=== PATIENT | male | born 1950 | race Caucasian/White ===

== ENCOUNTER → 2016-09-01 | Outpatient (CLI) | payer MEDICARE ==
[~2016-09-01] MED LIST: ASPI81 PO; FISH1000 PO; HYDR-3366 PO; LEFL20 PO; LEFL20TA7 PO; MEDR4TAB PO; MELO15TA2 PO; MULTTAB67 PO; NAPR220T95 PO; PRESCAP5 PO; TAB-TAB PO; TOPR100T15 PO; TRIA.1%T TOP; VITA100064 PO
== END ==
LOC: CPRE 12:55
PROVIDERS: ATTEND Neurological Surgery
DX: M48.06 Spinal stenosis, lumbar region (principal); M51.36 Other intervertebral disc degeneration, lumbar region; M12.88 Other specific arthropathies, not elsewhere classified, other specified site

== ENCOUNTER 2016-09-06 05:36 | Day surgery (SDC) | payer MEDICARE ==
--- NOTE | 2016-09-03 13:55 | MH ---
cc: LIZZIE CHE M.D., ROHIT K. M.D. NIPPER MD,FRANCO ZAFAR M.D., MD DATE OF ADMISSION: 09/06/2016 ADMITTING DIAGNOSIS: Lumbar spinal stenosis. HISTORY OF PRESENT ILLNESS This is a 66-year-old male who presented to our office for an evaluation of right groin pain. He states that in December of 2015 he was on a trip [id number] and doing a lot of physical work weed whacking and twisting a lot. He states that two days after he returned, he had difficulty walking secondary to the right groin pain which progressively has gotten worse. He went to the emergency room for pain control but everything they gave him was not helping his pain. He had an x-ray and ultrasound of his right groin and that was okay. He was discharged with tramadol and muscle relaxants, which did not help. He followed up with his primary care physician was placed on prednisone, muscle relaxants and [place]. He states the pain resolved in January. On March 24, the pain returned but not to the same intensity. His primary care doctor placed him on prednisone again. He states the pain has changed and it is not in the groin so much but is present in the mid right thigh to the mid right [place] and around the right knee. He states on the bottom of his feet, they feel like he is walking on sand. He feels stuff crawling up his right calf. He denies any left lower extremity symptoms. He denies much low back pain. Flexing his right hip exacerbates his right groin pain. The patient has tried physical therapy which helped some with his right groin pain. He wants to return to being a very active lifestyle but is very concerned that the severe pain that he initially had is going to return when he increases his activity. The patient states that his pain is restricting his activity status. He is requesting that we proceed with surgical intervention. PAST MEDICAL HISTORY: 1. The patient states that he has a had a history of tuberculosis in the past. 2. He also sees a ambulance dispatcher for inflammatory arthritis. 3. He has a history of a torn rotator cuff on the left side in 2005 that he had surgery for. 4. Right thumb fracture in 1961. 5. Tonsillectomy in 1954. CURRENT MEDICATIONS: 1. Arava daily. 2. Aleve daily and this was placed on hold prior to surgical intervention. ALLERGIES: HE HAS NO KNOWN DRUG ALLERGIES. REVIEW OF SYSTEMS CONSTITUTIONAL: He denies any fever or chills. EARS, NOSE AND THROAT: No pharyngitis, exudates or bloody drainage from his nose. CARDIOVASCULAR: He denies any chest pain or palpitations. RESPIRATORY: No cough or shortness of breath. GENITOURINARY: No dysuria or hematuria. MUSCULOSKELETAL: Positive for leg pain. No back pain. SKIN: No rashes or pruritus. NEUROLOGIC: No difficulty with speech or memory. GASTROINTESTINAL: No nausea or vomiting or abdominal pain. PSYCHIATRIC: No anxiety or depression symptoms. ENDOCRINE: No polyuria or polydipsia. HEMATOLOGIC: No bruising or bleeding tendencies. FAMILY HISTORY: His mother is at 96 years of age old of natural causes. His father is at 81 years old and had a stroke. He has a brother who is alive at 57 years old and in good health. SOCIAL HISTORY: He is retired. He is . He has two children. He does not smoke and he had previously but quit in 1992 and at that time he was smoking a pack a day for ten years. PHYSICAL EXAMINATION HEAD: Normocephalic, atraumatic. NECK: Supple. No carotid bruits heard on auscultation. LUNGS: Clear to auscultation bilaterally. HEART: Regular rate and rhythm. Normal sinus S1-S2. ABDOMEN: Soft, nontender. Positive bowel sounds. SKIN: Reveals no cyanosis or erythema. MUSCULOSKELETAL: He has 4/5 right iliopsoas strength, otherwise his strength is 5/5 in the lower extremities. NEUROLOGIC: He is awake, alert and oriented. Cranial nerves II through XII appear grossly intact. His speech is fluent. Comprehension is good. Reflexes are very diminished in the lower extremities. DATA REVIEW: An MRI of the lumbar spine from February 14, 2016 was reviewed which reveals moderate to severe L3-L4 spinal stenosis from a combination of facet and ligamentum flavum hypertrophy along with disk protrusion and moderate stenosis at the L4-5 level and mild at the L2-3 level. He has multilevel degenerative disk disease with facet arthropathy. IMPRESSION: 66-year-old male with persistent right groin and thigh pain down to his ankle with numbness in the plantar aspect of his foot. He also suffers from chronic bilateral knee pain. He has severe L3-4 and moderate L4-5 spinal stenosis along with facet and ligamentum flavum hypertrophy and disc protrusions and multilevel degenerative disc disease. PLAN: We have discussed the treatment options with the patient and he is requesting that we proceed with surgical intervention. We have recommended an L3-L5 lumbar decompression with microsurgical technique. The procedure as well as the risks, benefit, alternatives and recovery time were explained in great deal with the patient. We have discussed the risks along with the surgery to include but not be limited to bleeding, infection, muscle weakness, voice hoarseness, difficulty swallowing, heart attack, stroke, blood clots, scar tissue formation among others. The patient states that he understands the procedure as well as the risks involved and he was therefore scheduled accordingly. Dictated by Shane Valenzuela PA-C MD DREA Navarrete/CELE /1:13 PM /1:36 PM AUDREY
[~2016-09-06] VITALS: Ht 180.3 cm; Wt 90.1 kg
[~2016-09-06 05:36] MED LIST changes: -ASPI81 PO; -FISH1000 PO; -LEFL20TA7 PO; -MEDR4TAB PO; -MELO15TA2 PO; -NAPR220T95 PO; -TAB-TAB PO; -TOPR100T15 PO; -TRIA.1%T TOP
[2016-09-06 06:13] VITALS: BP 168/94; PULSE 76; RESP 18; TEMP 99; O2SAT 96
[2016-09-06] MEDS ORDERED: METOPROLOL TARTRATE 25 MG TAB PO PRN (06:15)
[2016-09-06] MEDS ORDERED: LACTATED RINGER'S 1000 ML IV SCH (06:15)
[2016-09-06] MEDS ORDERED: INSULIN HUMAN REGULAR 1,000 UNITS/10 ML VIAL SQ PRN (06:15)
[2016-09-06] MEDS ORDERED: SODIUM CHLOR 0.9% 1000 ML INJ 1,000 ML IV SCH (06:15)
[2016-09-06] MEDS ORDERED: SODIUM CHLORID 0.9% 500 ML IV SCH (06:15)
[2016-09-06] MEDS ORDERED: VANCOMYCIN HCL 1000 MG ON-CALL/NS 250 ML IV SCH ×2 (06:15)
[2016-09-06] MEDS ORDERED: VANCOMYCIN HCL 1000 MG VIAL ONE (07:08)
[2016-09-06] MEDS ORDERED: THROMBIN (TOPICAL) 5,000 UNIT VIAL ONE (07:08)
[2016-09-06] MEDS ORDERED: methylPREDNISolone ACETATE 40 MG/ML VIAL ONE ×2 (07:09→10:39)
[2016-09-06] MEDS ORDERED: GELFOAM SIZE 100 ONE (07:09)
[2016-09-06] MEDS ORDERED: BUPIVACAINE/EPINEPHRINE 0.25% PF 30 ML VIAL ONE (07:09)
[2016-09-06] MEDS ORDERED: DEXAMETHASONE SOD PHOS 4 MG/ML VIAL ONE (07:50)
[2016-09-06] MEDS ORDERED: ACETAMINOPHEN 1000 MG/100 ML VIAL IV ONE (07:50)
[2016-09-06] MEDS ORDERED: MIDAZOLAM HCL 2 MG/2 ML VIAL ONE (07:50)
[2016-09-06] MEDS ORDERED: FAMOTIDINE 20 MG/2 ML VIAL ONE (07:50)
[2016-09-06] MEDS ORDERED: HYDR-3366 PO (11:28)
[2016-09-06] MEDS ORDERED: ACETAMINOPHEN/HYDROcodone 325 MG/10 MG TAB PO PRN (11:30)
[2016-09-06] MEDS ORDERED: MORPHINE SULFATE 4 MG/ML INJ IV PUSH PRN (11:30)
--- NOTE | 2016-09-06 11:33 | PD.OP ---
Bo Sandhu M.D. Operative Report Date of Surgery: Sep 06, 2016 Preoperative Diagnosis: Lumbar L3-4 and L4-5 spinal stenosis from combination of disc protrusion and facet hypertrophy; low back pain with neurogenic claudication and radiculopathy Postoperative Diagnosis: Same Procedure: Lumbar L3, L4 and L5 decompressive laminectomies medial facetectomy, foraminotomies and microdiscectomy; microsurgical technique Anesthesia: Gen. endotracheal by Brigid Bell Surgeon: Clifton Graf M.D. Theatrical Dresser(s): Hanh Mclaughlin Operation and Findings: Following administration of general endotracheal anesthesia, patient received vancomycin 1 g intravenously. Sequential compression devices were placed for DVT prophylaxis. He was then turned in prone position on Yfn frame and the Derick table and all pressure points adequately padded. The lumbar region was then shaved and prepped with a Betadine and ChloraPrep. Sterile draping undertaken with Ioban. Midline incision overlying the L3-5 level was then made after infiltrating the skin with 0.5% Marcaine with epinephrine solution. The skin incision was made extending down through the fascia and then using the subperiosteal plane on the right side the muscular attachments to the spinous process and lamina were detached. Intraoperative fluoroscopy was used for level confirmation and further dissection undertaken using microtechnique with microscope magnification. The inferior portion of the right L3, right L4 hemilaminotomy and superior portion of the right L5 lamina were then drilled out and the underlying ligamentum flavum also removed. There was facet arthropathy noted and the medial portion of facets at the right L3-4 and L4-5 levels was also resected and the lateral recess along with a foramen decompressed. Epidural venous stasis which he with the bipolar cautery along with Gelfoam and thrombin and bone wax used at the laminotomy edges for hemostasis. The thecal sac was then gently retracted with a nerve root retractor and an extruded disc fragment was identified at the L3-4 level. Fragments were removed with pituitary forceps and the nerve root impingement along with thecal sac compression decompressed. The area was then copiously irrigated with vancomycin solution. The retractors removed and the muscle fascia proximal using 2-0 Vicryl interrupted stitches. 3-0 Vicryl subcuticular stitches were also placed in an interrupted fashion and planned skin closure was with Mastisol and Steri-Strips. A sterile dressing was then applied and the patient then turned in the supine position and extubated and taken to recovery room in stable condition. There were no intraoperative complications and all sponge and needle count was correct at the end of the procedure. Estimated blood loss about 50 ml. Clifton Graf MD Sep 06, 2016 11:33
[2016-09-06] MEDS ORDERED: fentaNYL CITRATE 250 MCG/5 ML AMP ONE (11:42)
[2016-09-06] MEDS ORDERED: NEOSTIGMINE 3 MG/3 ML SYR IV ONE ×2 (12:00)
[2016-09-06] MEDS ORDERED: ONDANSETRON HCL 4 MG/2 ML VIAL IV PUSH ONE (12:00)
[2016-09-06] MEDS ORDERED: ePHEDrine/NS 25 MG/5 ML SYR IV ONE (12:00)
[2016-09-06] MEDS ORDERED: DO NOT ADM ANY ANTICOAGULANT DRUGS XX PRN (12:00)
[2016-09-06] MEDS ORDERED: PROPOFOL 200 MG/20 ML AMP IV ONE (12:00)
[2016-09-06] MEDS ORDERED: ERYTHROMYCIN 0.5% OPTH OINT 1 GM TUBO ONE (12:26)
[2016-09-06] MEDS ORDERED: ERYTHROMYCIN 0.5% OPTH OINT 3.5 GM TUBO ONE ×2 (12:45→14:00)
[2016-09-06] MEDS ORDERED: ERYTHROMYCIN 0.5% OPTH OINT 3.5 GM TUBO LEFT EYE ONE (12:45)
[2016-09-06] MEDS ORDERED: NON-FORMULARY DRUG LEFT EYE ONE (12:45)
[2016-09-06 13:28] VITALS: BP 145/82; PULSE 85; RESP 18; TEMP 98.1; O2SAT 97
[2016-09-06] MEDS ORDERED: TETRACAINE 0.5% OPTH SOLN 2 ML BTL ONE (14:00)
--- NOTE | 2016-09-06 15:01 | RADRPT ---
EXAM DATE/TIME: 09/06/2016 09:05 [facility] COMPARISON: No previous studies available for comparison. INDICATIONS : L3-4, L4-5 Laminectomy. MEDICAL HISTORY : Gastroesophageal reflux disease. Arrhythmia. SURGICAL HISTORY : None. ENCOUNTER: Initial ACUITY: 1 day PAIN SCORE: Non-responsive. LOCATION: Lumbar spine. FINDINGS: Metallic probe is directed at L3-4 and L4-5. CONCLUSION: Metallic probe directed at L3-4 and L4-5. Mauri Moura MD FACR on September 06, 2016 at 13:04 Board Certified Radiologist. This report was verified electronically.
[2016-09-07] MEDS ORDERED: CHOLECALCIFEROL (VIT D3) 5000 UNIT CAP PO SCH (09:00)
[2016-09-07] MEDS ORDERED: LEFLUNOMIDE 20 MG TAB PO SCH (09:00)
[2016-09-07] MEDS ORDERED: MULTIVITAMINS/MINERALS THERAPEUTIC TAB PO SCH (09:00)
[2016-09-07] MEDS ORDERED: MULTIVITAMIN TAB PO SCH (09:00)
== END 2016-09-06 14:25 | disposition home or self-care (01) ==
LOC: HSDC 05:36
PROVIDERS: ATTEND Neurological Surgery
DX: M48.06 Spinal stenosis, lumbar region (principal); M51.36 Other intervertebral disc degeneration, lumbar region; M12.88 Other specific arthropathies, not elsewhere classified, other specified site
CPT/HCPCS: 00630; 63047; 63048; 72020; 76000; 86850; 86900; 86901; J0131; J1030; J1100; J2250; J2405; J2710; J3010; J3370; J7050; J7120

== ENCOUNTER → 2017-08-15 | Outpatient (CLI) | payer MEDICARE ==
[2017-08-15 09:47] LABS: HEMATOCRIT 43.7 % (39.0-51.0); HEMOGLOBIN 15.6 GM/DL (13.0-17.0); MEAN CORPUSCULAR HEMOGLOBIN 31.8 PG (27.0-34.0); MEAN CORPUSCULAR HGB CONC 35.7 % (32.0-36.0); MEAN PLATELET VOLUME 8.3 FL (7.0-11.0); PLATELET COUNT 163 TH/MM3 (150-450); RED CELL DISTRIBUTION WIDTH 13.5 % (11.6-17.2); REVIEW FLAG FINAL; WHITE BLOOD COUNT 5.5 TH/MM3 (4.0-11.0)
[2017-08-15 10:06] LABS: APTT (PATIENT) 23.7 SEC (24.3-30.1); INTERNATIONAL NORMALIZED RATIO 0.9 RATIO; PROTHROMBIN TIME - PATIENT 9.6 SEC (9.8-11.6)
[2017-08-15 10:13] LABS: ALT (GPT) 39 U/L (12-78); ANION GAP 7 MEQ/L (5-15); AST (GOT) 28 U/L (15-37); BICARBONATE 27.4 MEQ/L (21.0-32.0); BLOOD UREA NITROGEN 16 MG/DL (7-18); CHLORIDE 103 MEQ/L (98-107); GLOMERULAR FILTRATION RATE 84 ML/MIN (>89); GLUCOSE,FASTING 105 MG/DL (74-99); POTASSIUM 4.3 MEQ/L (3.5-5.1); SODIUM (NA) 137 MEQ/L (136-145)
[2017-08-15 10:16] LABS: ALKALINE PHOSPHATASE 66 U/L (45-117); BILIRUBIN, URINE NEG (NEG); BLOOD, URINE NEG (NEG); GLUCOSE,URINE NEG (NEG); KETONE, URINE NEG (NEG); MUCUS URINE FEW /lpf (OCC); NITRITE,URINE NEG (NEG); PH, URINE 5.5 (5.0-8.5); TOTAL BILIRUBIN ADULT 1.2 MG/DL (0.2-1.0); TOTAL PROTEIN 7.3 GM/DL (6.4-8.2); URINE COLOR YELLOW (YELLW/STRAW); URINE LEUKOCYTE ESTERASE NEG (NEG)
[2017-08-15 10:17] LABS: COMMENT (UR) CULT NOT INDICATED; CULTURE IF INDICATED CULT NOT INDICATED
== END ==
LOC: CPRE 08:10
DX: Z01.812 Encounter for preprocedural laboratory examination (principal); Z01.810 Encounter for preprocedural cardiovascular examination; R94.31 Abnormal electrocardiogram [ECG] [EKG]
CPT/HCPCS: 36415; 80053; 81001; 85027; 85610; 85730; 93005

== ENCOUNTER 2017-08-22 05:32 | Inpatient (IN) | payer MEDICARE ==
--- NOTE | 2017-08-17 18:19 | MH ---
cc: Flako CAMACHO M.D. DATE OF ADMISSION 08/22/2017 ADMISSION DIAGNOSIS Osteoarthritic degeneration of left and right knees now being admitted for bilateral total knee arthroplasties. HISTORY OF THE PRESENT ILLNESS Admission history and physical is as follows, this pleasant 67-year-old male is being admitted today for bilateral total knee arthroplasty due to severe painful osteoarthritic degeneration of his knees. PAST MEDICAL HISTORY Other past history: 1. He has a history of respiratory tuberculosis when he was younger. 2. And arthritis. CURRENT MEDICATIONS Arava 20 mg a day. REVIEW OF SYSTEMS Noncontributory. FAMILY HISTORY Noncontributory. PAST SURGICAL HISTORY No known surgical history. SOCIAL HISTORY He does not smoke or drink. ALLERGIES NO KNOWN ALLERGIES. PHYSICAL EXAMINATION GENERAL: We find a 67-year-old male well-developed, well-nourished, alert and oriented times three complaining of pain in his knees. VITAL SIGNS: Blood pressure 138/78, pulse 69 and regular, respirations 16, temperature 98.5, pulse oximetry 97% on room air. HEENT: Eyes PERRL, EOMI. Ears, nose, mouth clear. NECK: Supple. LUNGS: Clear. HEART: Regular rate. ABDOMEN: Soft. Positive bowel sounds, nontender. EXTREMITIES: Reveal both knees to have crepitance on range of motion. He is neurovascularly intact to his toes. IMPRESSION At this time is severe, painful, arthritic degeneration of both knees. PLAN Admission for bilateral total knee arthroplasty today. The patient given prescription for postoperative pain and anticoagulation control in the office. MD CHARLES Orozco/MARIAH /5:15 PM /5:50 PM
[~2017-08-22] VITALS: Ht 180.3 cm; Wt 93.1 kg
[~2017-08-22 05:32] MED LIST changes: +ALEV220T14 PO; -HYDR-3366 PO; -LEFL20 PO; +OCUVTAB4 PO; -PRESCAP5 PO
[2017-08-22] MEDS ORDERED: METOPROLOL TARTRATE 25 MG TAB PO PRN (06:00)
[2017-08-22] MEDS ORDERED: VANCOMYCIN 1000 MG/NS 250 ML (for <70 kg) IV SCH ×2 (06:00)
[2017-08-22] MEDS ORDERED: CHLORHEXIDINE GLUCONATE 2 % 1 PACK (2 CLOTHS) TOPICAL PRN (06:00)
[2017-08-22] MEDS ORDERED: TRANEXAMIC ACID INJ 930 MG in SODIUM CHLORIDE 0.9% INJ 100 ML IV SCH ×4 (06:00)
[2017-08-22] MEDS ORDERED: LACTATED RINGER'S 1000 ML IV PRN (06:00)
[2017-08-22] MEDS ORDERED: CHLORHEXIDINE GLUCONATE 4% SOLN 120 ML BTL TOPICAL SCH (06:00)
[2017-08-22] MEDS ORDERED: ceFAZolin 2 GM PREMIX 50 ML IV SCH (06:00)
[2017-08-22] MEDS ORDERED: SODIUM CHLORID 0.9% 500 ML IV PRN (06:00)
[2017-08-22] MEDS ORDERED: POVIDONE IODINE 5% (ANTISEPSIS KIT) 4 APPLICATIONS EACH NARE PRN (06:00)
[2017-08-22] MEDS ORDERED: EXPAREL PERI-ARTICULAR INJECTION (TOTAL VOL. 120 ML) P-ARTICULR SCH ×2 (06:15)
[2017-08-22] MEDS ORDERED: ceFAZolin INJ 1,000 MG VIAL ONE ×3 (06:45→11:54)
[2017-08-22] MEDS ORDERED: BUPIVACAINE HCL PF 0.5% 30 ML VIAL ONE (07:01)
[2017-08-22] MEDS ORDERED: SODIUM CHLORIDE 0.9% 20 ML VIAL ONE (07:01)
[2017-08-22] MEDS ORDERED: DEXAMETHASONE SOD PHOS PF 10 MG/ML VIAL ONE (07:01)
[2017-08-22] MEDS ORDERED: BUPIVACAINE LIPOSOME PF 1.3% 20 ML VIAL ONE (07:18)
[2017-08-22] MEDS ORDERED: DEXAMETHASONE SOD PHOS 4 MG/ML VIAL ONE (07:58)
[2017-08-22] MEDS ORDERED: MORPHINE SULFATE 30 MG/30 ML PCA IV SCH (08:00)
[2017-08-22] MEDS ORDERED: CPMMACHINE (08:00)
[2017-08-22] MEDS ORDERED: ONDANSETRON HCL 4 MG/2 ML VIAL IVP PRN (08:00)
[2017-08-22] MEDS ORDERED: HYDROcodone/IBUPROFEN 7.5MG/200MG TAB PO PRN (08:00)
[2017-08-22] MEDS ORDERED: TRANEXAMIC ACID INJ 0 MG in SODIUM CHLORIDE 0.9% INJ 100 ML IV SCH (08:00)
[2017-08-22] MEDS ORDERED: WALKER WHEELS/F1 MIS (08:00)
[2017-08-22] MEDS ORDERED: TEMAZEPAM 15 MG CAP PO PRN (08:00)
[2017-08-22] MEDS ORDERED: diphenhydrAMINE HCL 50 MG/ML VIAL IV PUSH PRN (08:00)
[2017-08-22] MEDS ORDERED: NALOXONE HCL 0.4 MG/ML AMP IV PUSH PRN (08:00)
[2017-08-22] MEDS ORDERED: ADJUSTABLE COMM1 MIS (08:00)
[2017-08-22] MEDS ORDERED: NON-FORMULARY DRUG (Multiple Vitamin 1 TAB) PO SCH (09:00)
[2017-08-22] MEDS ORDERED: TOBRAMYCIN 1200 MG VIAL (for ortho/sterile core) OTHER ONE ×2 (09:30→09:53)
[2017-08-22] MEDS ORDERED: ePHEDrine/NS 25 MG/5 ML SYRINGE IV ONE (12:00)
[2017-08-22] MEDS ORDERED: ONDANSETRON HCL 4 MG/2 ML VIAL IV ONE (12:00)
[2017-08-22] MEDS ORDERED: GLYCOPYRROLATE 1 MG/5 ML SYRINGE IV PUSH ONE (12:00)
[2017-08-22] MEDS ORDERED: LACTATED RINGER'S 1000 ML INJ 1,000 ML IV ONE ×2 (12:00)
[2017-08-22] MEDS ORDERED: LIDOCAINE HCL 1% PF 5 ML SYRINGE OTHER ONE (12:00)
[2017-08-22] MEDS ORDERED: SODIUM CHLORIDE 0.9% 20 ML VIAL IV ONE (12:00)
[2017-08-22] MEDS ORDERED: ROCURONIUM INJ 50 MG/5 ML SYRINGE IV PUSH ONE (12:00)
[2017-08-22] MEDS ORDERED: NEOSTIGMINE 5 MG/5 ML SYRINGE IV PUSH ONE (12:00)
[2017-08-22] MEDS ORDERED: PROPOFOL 200 MG/20 ML AMP IV ONE (12:00)
[2017-08-22] MEDS ORDERED: DO NOT ADM ANY ANTICOAGULANT DRUGS PRN (12:17)
[2017-08-22] MEDS ORDERED: *morphine SULFATE 10 MG/ML PERIprocedure ONLY ONE (12:54)
[2017-08-22] MEDS ORDERED: MIDAZOLAM HCL 2 MG/2 ML VIAL ONE (12:55)
[2017-08-22] MEDS ORDERED: ACETAMINOPHEN 1000 MG/100 ML 100 ML IV ONE (12:55)
[2017-08-22] MEDS: LACTATED RINGER'S 1000 ML INJ 1,000 ML IV SCH ×2 (13:00→22:40)
--- NOTE | 2017-08-22 13:15 | RADRPT ---
EXAM DATE/TIME: 08/22/2017 12:52 [facility] COMPARISON: No previous studies available for comparison. INDICATIONS : Post-op left knee. MEDICAL HISTORY : None. SURGICAL HISTORY : Total knee replacement, left. Total knee replacement, right. ENCOUNTER: Initial ACUITY: 1 day PAIN SCORE: 10/10 LOCATION: Left Knee FINDINGS: AP and lateral views of the knee following arthroplasty reveals a prosthesis in anatomic alignment. F racture is not appreciated. CONCLUSION: Status post total knee arthroplasty. Mauri Moura MD FACR Board Certified Radiologist. This report was verified electronically.
--- NOTE | 2017-08-22 13:15 | RADRPT ---
EXAM DATE/TIME: 08/22/2017 12:44 [facility] COMPARISON: No previous studies available for comparison. INDICATIONS : Post-op right knee. MEDICAL HISTORY : None. SURGICAL HISTORY : Total knee replacement, left. Total knee replacement, right. ENCOUNTER: Initial ACUITY: 1 day PAIN SCORE: 10/10 LOCATION: Right Knee FINDINGS: AP and lateral views of the knee following arthroplasty reveals a prosthesis in anatomic alignment. F racture is not appreciated. CONCLUSION: Status post total knee arthroplasty. Mauri Moura MD FACR Board Certified Radiologist. This report was verified electronically.
--- NOTE | 2017-08-22 13:31 | PD.CONS ---
HPI Service [facility] Hospitalists Consult Requested By Dr. Giraldo Reason for Consult Postoperative medical management Primary Care Physician Poncho Love M.D. Diagnoses: History of Present Illness This is 67-year-old male patient with past medical history which includes GERD, hypertension, chronic lower back pain and osteoarthritis bilateral knees. Patient underwent a bilateral total knee arthroplasty 08/22/[address] Giraldo to be been consulted for assistance with postoperative medical management. Patient seen postoperatively. He is groggy post anesthesia information gathered from patient and prior charting. Patient offers no specific complaints at this time. Patient reports pain is tolerable. Denies shortness of breath chest pain. Review of Systems ROS Limitations: Clinical Condition Constitutional: COMPLAINS OF: Fatigue, DENIES: Fever, Chills Eyes: DENIES: Blurred vision, Diplopia, Vision loss Respiratory: DENIES: Cough, Sputum production, Shortness of breath Cardiovascular: DENIES: Chest pain, Palpitations, Dyspnea on Exertion Gastrointestinal: DENIES: Abdominal pain, Nausea, Vomiting Musculoskeletal: COMPLAINS OF: Joint pain, Joint Swelling Neurologic: COMPLAINS OF: Abnormal gait, DENIES: Headache, Localized weakness, Speech Problems Psychiatric: DENIES: Anxiety, Confusion, Depression Past Family Social History Past Medical History GERD, hypertension, chronic lower back pain and osteoarthritis bilateral knees Past Surgical History Complete colonoscopy, EGD, excision of eyelid lesion, rotator cuff surgery, tonsillectomy, left knee arthroplasty Reported Medications Aleve Arthritis (Naproxen Sodium) 220 Mg Tab 220 Mg PO BID PRN Preservision Areds (Multiple Vitamins W/ Minerals) 1 Tab 1 Tab PO DAILY Vitamin D3 (Cholecalciferol) 1,000 Unit Tab 5,000 Units PO DAILY Multiple Vitamin 1 Tab 1 Tab PO DAILY Allergies: Coded Allergies: acetaminophen (Unverified Allergy, Severe, RESTLESSNESS, 08/22/17) monosodium glutamate (Unverified Allergy, Severe, HEADACHES, 08/22/17) propoxyphene (Unverified Allergy, Severe, RESTLESSNESS, 08/22/17) Active Ordered Medications Current Medications Medications (Trade) Dose Ordered Sig/Jeffrey Route Start Time Stop Time Status Last Admin Lactated Ringer's 1,000 ml @ 30 mls/hr Q24H PRN IV 08/22/17 06:00 08/25/17 05:59 08/22/17 06:30 Sodium Chloride 500 ml @ 30 mls/hr [id number] PRN IV 08/22/17 06:00 08/25/17 05:59 (Lopressor) 25 mg REPRODUCTIVE HEALTHCARE ASSISTANT PRN PO 08/22/17 06:00 08/25/17 05:59 (Betadine 5% Antisepsis Kit) 1 applic REPRODUCTIVE HEALTHCARE ASSISTANT PRN EACH NARE 08/22/17 06:00 08/25/17 05:59 (Chlorhexidine 2% Cloth) 3 pack REPRODUCTIVE HEALTHCARE ASSISTANT PRN TOPICAL 08/22/17 06:00 08/25/17 05:59 08/22/17 06:30 (Hibiclens 4% Top Soln) 1 applic ONCE TOPICAL 08/22/17 06:00 08/25/17 05:59 08/22/17 06:30 Cefazolin Sodium/ Dextrose 50 ml @ 100 mls/hr REPRODUCTIVE HEALTHCARE ASSISTANT IV 08/22/17 06:00 08/25/17 05:59 08/22/17 08:11 Vancomycin HCl 1000 mg/Sodium Chloride 250 ml @ 250 mls/hr REPRODUCTIVE HEALTHCARE ASSISTANT IV 08/22/17 06:00 08/25/17 05:59 08/22/17 07:30 Tranexamic Acid 930 mg/Sodium Chloride 109.3 ml @ 200 mls/hr ONCE IV 08/22/17 06:00 08/22/17 16:00 08/22/17 08:12 Tranexamic Acid 930 mg/Sodium Chloride 109.3 ml @ 200 mls/hr ONCE IV 08/22/17 06:00 08/22/17 16:00 08/22/17 11:10 Bupivacaine Liposome 20 ml/ Sodium Chloride 120 ml @ 240 mls/hr ONCE P-ARTICULR 08/22/17 06:15 08/22/17 16:00 08/22/17 10:11 (Vitamin D3) 5,000 units DAILY PO 08/22/17 09:00 Non-Formulary Medication 1 tab DAILY PO 08/22/17 09:00 UNV Non-Formulary Medication 1 tab DAILY PO 08/22/17 09:00 UNV Lactated Ringer's 1,000 ml @ 80 mls/hr [id number] IV 08/22/17 07:50 08/22/17 13:00 Cefazolin Sodium 1000 mg/Sodium Chloride 100 ml @ 200 mls/hr Q6H IV 08/22/17 08:00 08/22/17 20:29 UNV (Post-op Orders (for Pharmacy)) STAT ONCE XX 08/22/17 08:00 08/22/17 08:01 UNV Tranexamic Acid / Sodium Chloride 100 ml @ 200 mls/hr UNSCH IV 08/22/17 08:00 08/22/17 08:29 UNV (Theragran M Tab) 1 tab BID PO 08/23/17 21:00 10/22/17 20:59 (Zofran Inj) 4 mg Q6H PRN IVP 08/22/17 08:00 (Colace) 100 mg BID PO 08/23/17 21:00 (Restoril) 15 mg HS PRN PO 08/22/17 08:00 (Bacitracin Oint Packet) 0.9 gm UNSCH X1 PRN TOP 08/24/17 10:15 08/26/17 10:14 (Narcan Inj) 0.4 mg UNSCH PRN IV PUSH 08/22/17 08:00 (Benadryl Inj) 25 mg Q6H PRN IV PUSH 08/22/17 08:00 (Morphine 1 Mg/ ml COMMUNICATIONS ELECTRICIAN SUPERVISOR) 30 mg UNSCH IV 08/22/17 08:00 COMMUNICATIONS ELECTRICIAN SUPERVISOR Dosage Infused (Pha) 1 Q8HR .XX 08/22/17 14:00 (Eliquis) 2.5 mg BID PO 08/23/17 10:00 UNV (Vicoprofen 7.5-200 Mg) 2 tab Q4H PRN PO 08/22/17 08:00 (Vicoprofen 7.5-200 Mg) 1 tab Q4H PRN PO 08/22/17 08:00 Family History Reviewed and noncontributory Social History Currently Denies EtOH use or illicit drug use Quit smoking cigarettes 1991 Physical Exam Vital Signs Vital Signs Date Time Temp Pulse Resp B/P (MAP) Pulse Ox O2 Delivery O2 Flow Rate FiO2 08/22/17 12:59 15 08/22/17 12:15 97.5 85 20 121/71 (88) 96 Nasal Cannula 3 08/22/17 06:28 98.2 77 16 162/85 (110) 96 Physical Exam GENERAL: This is a well-nourished, well-developed patient, in no apparent distress. SKIN: Post-op dressing dry and intact HEAD: Atraumatic. Normocephalic. No temporal or scalp tenderness. EYES: Extraocular motions intact. No scleral icterus. No injection or drainage. CARDIOVASCULAR: Regular rate and rhythm RESPIRATORY: Clear to auscultation. Breath sounds equal bilaterally. . GASTROINTESTINAL: Abdomen soft, non-tender, nondistended. MUSCULOSKELETAL: Extremities without clubbing, cyanosis, or edema. No joint tenderness, effusion, or edema noted. No calf tenderness. Negative Homans sign bilaterally. NEUROLOGICAL: Awake and alert. Sensory grossly within normal limits. Five out of 5 muscle strength in all muscle groups, with the exception of postoperative bilateral lower extremities. Normal speech. Assessment and Plan Problem List: (1) Osteoarthritis of knees, bilateral ICD Codes: M17.0 - Bilateral primary osteoarthritis of knee Plan: Osteoarthritis bilateral knees Patient is status post bilateral total knee arthroplasty today 08/22/[address] Giraldo Postoperative pain management includes Morphine COMMUNICATIONS ELECTRICIAN SUPERVISOR Postoperative anticoagulation per orthopedic surgery Hypertension not on medication monitor blood pressure Assessment and Plan Patient examined. Assessment and plan formulated with Christine Dawson PA-C. I agree with the above. medically stable. Christine Dawson Aug 22, 2017 13:31 Radhames Benoit MD Aug 22, 2017 17:08
[2017-08-22] MEDS ORDERED: Post-op Orders (for Pharmacy) XX ONE (15:15)
[2017-08-22] MEDS ORDERED: *ONDANSETRON 4 MG VIAL PERIprocedural Use ONLY ONE (15:31)
[2017-08-22 16:30] VITALS: BP 132/73; PULSE 96; RESP 17; TEMP 96.2; O2SAT 95
--- NOTE | 2017-08-22 16:34 | HHI.PR ---
Immediate Post Op Note Procedure Date: Aug 22, 2017 Pre Op Diagnosis: Osteoarthritic degeneration of left and right knees Post Op Diagnosis: Osteoarthritic degeneration of left and right knees Surgeon: Zay Giraldo MD Embedded Case Manager(s): Karyn GOLDBERG Procedure: Bilateral Total Knees Arthroplasty Complications: none Specimen(s) removed: none Estimated blood loss: 200 cc Anesthesia: General Drains: None IVF Urinary Output (mLs): 0 (no baker) Tourniquet time (min at mmHg) right knee 47 mins at 300 mmHg Left knee 57 mins at 300 mmHg Patient to: PACU Patient Condition: Good Implant/Devices: SEE IMPLANT LOG (if applicable) Date/Time of Procedure: SEE SURGICAL CARE RECORD Karyn Jeffery Aug 22, 2017 16:34
[2017-08-22] MEDS: MULTIVITAMIN-OPHTHALMIC 1 TAB PO SCH (17:29)
[2017-08-22] MEDS: CHOLECALCIFEROL (VIT D3) 1000 UNIT TAB PO SCH (17:29)
[2017-08-22] MEDS: PCA - TOTAL MG MORPHINE DELIVERED PER SHIFT SCH ×2 (17:29→22:00)
[2017-08-22 20:40] VITALS: BP 139/80; PULSE 125; RESP 18; TEMP 98.3; O2SAT 97
[2017-08-22 22:25] VITALS: PULSE 105
[2017-08-23] VITALS (7 sets, daily range): BP systolic 111–160; BP diastolic 59–79; PULSE 85–102; RESP 17–19; TEMP 97.6–99.6; O2SAT 93–98
[2017-08-23] MEDS: PCA - TOTAL MG MORPHINE DELIVERED PER SHIFT SCH (05:55)
[2017-08-23 07:16] LABS: HEMATOCRIT 35.3 % (39.0-51.0); HEMOGLOBIN 12.3 GM/DL (13.0-17.0)
[2017-08-23] MEDS: MULTIVITAMIN-OPHTHALMIC 1 TAB PO SCH (08:06)
[2017-08-23] MEDS: CHOLECALCIFEROL (VIT D3) 1000 UNIT TAB PO SCH (08:06)
[2017-08-23] MEDS: LACTATED RINGER'S 1000 ML INJ 1,000 ML IV SCH ×2 (08:09→21:20)
--- NOTE | 2017-08-23 09:45 | MP ---
cc: Flako CAMACHO DATE OF SURGERY 08/22/2017 PREOPERATIVE DIAGNOSIS Osteoarthritic degeneration both right and left knees. POSTOPERATIVE DIAGNOSIS Osteoarthritic degeneration both right and left knees. SURGERY PERFORMED Bilateral total knee arthroplasties using consensus components, the right knee, size 5 femur, 4 tibia, 2 patella with a 10 insert, the left knee being a size 5 femur, 3 tibia, 2 patella and a 10 insert. Two batches of antibiotic impregnated cement for each knee of DePuy cement. SURGEON Dr. Camacho HORTICULTURAL NURSERY ASSISTANT ASHLYN De La Cruz ANESTHESIA General intubation and blocks PROCEDURE WAS FOLLOWS After successful induction of anesthesia, the patient is placed on the operating room table in the supine position. The knee is prepped and draped in the usual manner. A tourniquet is inflated at the upper thigh and set to 300 mmHg pressure after exsanguination of the lower extremity. A longitudinal incision is made extending from 3 inches proximal to the superior pole of the patella, across the patella in longitudinal fashion, and down past the insertion of the tibial tubercle into the proximal tibia. The incision is carried down through subcutaneous tissue along the medial aspect of the patella and retinaculum, down through the capsule to expose the knee joint. The patella and patellar tendon are freed up enough to allow the patella to be inverted and retracted off the lateral side of the knee joint. The knee joint is left exposed. Small osteophytes are removed. All soft tissue is removed to allow proper position of the femoral and tibial cutting jig guide. The first femoral jig is then inserted along the distal end of the femur after first measuring to decide whether this is a small, medium, or large component. The notch is then drilled and the tibial cutting guide inserted into the femoral cutting guide, along with the ankle brace to allow for proper measurement of the tibial cutting surface that needed to be resected. Pins are inserted into the tibial cutting jig and femoral cutting jig to hold them in place. An oscillating saw is then used to resect the surface of the tibia. The surface of the tibia is then completely removed using sharp and blunt dissection. The anterior and posterior cuts of the femur are then made as well using an oscillating saw through the cutting guide. All guides are then removed and the varus/valgus angulation cutting guide applied to the femur for proper measurement of the proper amount of valgus. The anterior cutting guide for the femur is then inserted at the anterior femoral cuts made. Next, the first block trial is inserted into the femur to allow for proper condyle drill holes to be made which are then made followed by removal of the bone between the condyles using an oscillating saw as well as the bone removed at the most posterior surface of the condyle. After this, this guide is removed and the chamfer cuts made using the chamfer cutting guide from both anterior and posterior. Next, the femoral trial is then inserted, the tibial surface reflected anterior to expose the tibial surface and a tibial stem guide is inserted after first measuring for a standard, standard plus, large, or large plus surface to be used. After the stem is impacted the trial tibial surface is applied followed by the trial meniscal components. After full range of motion is found with the appropriate length meniscal components varying the patella is prepared by resecting the posterior aspect of the patella using an oscillating saw, inserting a trial. The trial is then removed and the cruciate cutting guide applied using the bur to cut the cruciate cuts. After cruciate cuts are made all trials are removed. The wound is irrigated copiously with antibiotic solution and Water-Pik and the actual components inserted into place using the aforementioned components, the right knee being done first. After the cement has hardened and the components are found to have full range of motion with no instability. Tourniquet deflated total tourniquet time being 46 minutes at 300 mmHg pressure. Deep fascia approximated with running #2 quill after approximated after 60 cc of Exparel inserted around the knee joint for extra pain control. Deep fascia approximated running #2 quill, subcutaneous tissue approximated using interrupted running 2-0 and 3-0 Monocryl suture and Steri-Strips, sterile dressing and knee immobilizer. The left knee. Tourniquet deflated total tourniquet time being 55 minutes at 300 mmHg pressure. Meticulous hemostasis achieved. 60 cc of Exparel used around the knee joint for extra pain control. Deep fascia approximated using #2 quill, subcutaneous tissue approximated using interrupted and running 2-0 and 3-0 Monocryl sutures. Steri-Strips, sterile dressing and knee immobilizer. No drains utilized. Estimated blood loss for both knees together 200 cc. Sponge and suture counts were correct. The patient tolerated the procedure well and left the operating room in satisfactory condition. Barb Jeffery, MICA PASTER was present during the entire procedure to include patient positioning and the procedure. The medical necessity of a nurse practitioner as a first aid attendant was indicated in this case due to the surgical complexity of the case itself and during the surgical case, the surgical scrub technologist was working the back table while my surgical scrub technologist, ASHLYN, was directly assisting me. J. MD CHARLES Gil/LEONARD /11:42 AM /9:32 AM
[2017-08-23] MEDS: APIXABAN 2.5 MG TABLET PO SCH ×2 (10:00→21:00)
--- NOTE | 2017-08-23 11:24 | PD.ORT.PN ---
Subjective Subjective Remarks Patient fairly comfortable today. Having some difficulty voiding while in bed. Better when sitting. Objective Vitals Vital Signs Date Time Temp Pulse Resp B/P (MAP) Pulse Ox O2 Delivery O2 Flow Rate FiO2 08/23/17 09:50 93 21 08/23/17 08:00 98.0 98 18 143/79 (100) 96 08/23/17 05:55 18 08/23/17 04:08 99.2 90 18 111/72 (85) 97 08/23/17 00:10 97.6 96 18 127/68 (87) 95 08/22/17 22:25 105 08/22/17 22:00 18 08/22/17 20:40 98.3 125 18 139/80 (99) 97 08/22/17 17:29 17 08/22/17 16:30 96.2 96 17 132/73 (92) 95 08/22/17 16:00 97.8 98 16 123/64 (83) 96 Nasal Cannula 2 08/22/17 15:00 99 16 126/68 (87) 95 Nasal Cannula 2 08/22/17 14:00 98 16 122/66 (84) 94 Nasal Cannula 2 08/22/17 13:36 15 08/22/17 13:31 15 08/22/17 13:30 97.8 96 15 118/67 (84) 93 Nasal Cannula 2 08/22/17 13:15 98 15 120/68 (85) 93 Nasal Cannula 2 08/22/17 13:00 93 15 119/69 (86) 100 Nasal Cannula 3 08/22/17 12:59 15 08/22/17 12:45 88 15 120/75 (90) 98 Nasal Cannula 3 08/22/17 12:30 89 15 119/70 (86) 97 Nasal Cannula 3 08/22/17 12:15 97.5 85 20 121/71 (88) 96 Nasal Cannula 3 I/O 08/22/17 08/22/17 08/22/17 08/23/17 08/23/17 08/23/17 07:00 15:00 23:00 07:00 15:00 23:00 Intake Total 2200 ml 450 ml 1667 ml Output Total 6200 ml 200 ml 600 ml Balance -4000 ml 250 ml 1067 ml Intake Oral 240 ml 240 ml IV Total 2200 ml 210 ml 1427 ml Output Urine Total 200 ml 600 ml Estimated Blood Loss 200 ml Other 6000 ml # Voids 0 # Bowel Movements 0 0 Result Diagram: 08/23/17 0617 Objective Remarks sitting up in chair. NV intact to toes. No calf tenderness. Assessment & Plan Ortho Post Op Day #: 1 Problem List: Assessment and Plan Cont PT, [facility] soon. Flako Giraldo MD Aug 23, 2017 11:24
[2017-08-23] MEDS: MULTIVITAMINS/MINERALS THERAPEUTIC TAB PO SCH (21:00)
[2017-08-23] MEDS: DOCUSATE SODIUM 100 MG CAP PO SCH (21:00)
[2017-08-23] MEDS: HYDROcodone/IBUPROFEN 7.5MG/200MG TAB PO PRN (21:02)
[2017-08-24 00:45] VITALS: BP 136/81; PULSE 102; RESP 18; TEMP 99.6; O2SAT 97
[2017-08-24] MEDS: HYDROcodone/IBUPROFEN 7.5MG/200MG TAB PO PRN ×4 (01:01→13:48)
[2017-08-24 04:35] VITALS: BP 134/78; PULSE 88; RESP 17; TEMP 98.8; O2SAT 100
[2017-08-24 08:00] VITALS: BP 127/76; PULSE 89; RESP 17; TEMP 98.9; O2SAT 97
--- NOTE | 2017-08-24 08:06 | PD.ORT.PN ---
Subjective Subjective Remarks Patient fairly comfortable today. Objective Vitals Vital Signs Date Time Temp Pulse Resp B/P (MAP) Pulse Ox O2 Delivery O2 Flow Rate FiO2 08/24/17 04:35 98.8 88 17 134/78 (96) 100 08/24/17 00:45 99.6 102 18 136/81 (99) 97 08/23/17 20:40 99.6 102 19 137/79 (98) 93 08/23/17 20:40 21 08/23/17 16:22 98.9 98 18 160/77 (104) 98 08/23/17 11:48 98.8 85 17 129/59 (82) 96 08/23/17 09:50 93 21 I/O 08/23/17 08/23/17 08/23/17 08/24/17 08/24/17 08/24/17 07:00 15:00 23:00 07:00 15:00 23:00 Intake Total 1667 ml 600 ml 240 ml 360 ml Output Total 600 ml 450 ml Balance 1067 ml 150 ml 240 ml 360 ml Intake Oral 240 ml 600 ml 240 ml 360 ml IV Total 1427 ml Output Urine Total 600 ml 450 ml # Voids 1 3 # Bowel Movements 0 0 0 0 Result Diagram: 08/23/17 0617 Objective Remarks In benefit moment. NV intact to toes. No calf tenderness. Assessment & Plan Ortho Post Op Day #: 2 Problem List: Assessment and Plan Cont PT, [facility] today. Flako Giraldo MD Aug 24, 2017 08:06
--- NOTE | 2017-08-24 08:09 | HHI.DS ---
Discharge Summary Admission Date Aug 22, 2017 at 05:32 Discharge Date: Aug 24, 2017 Admitting Diagnosis Osteoarthritic degeneration both left and right knees. Diagnosis: (1) Status post total bilateral knee replacement Diagnosis: Principal ICD Codes: Z96.653 - Presence of artificial knee joint, bilateral Brief History This is a 67 year old male patient CBC/BMP: 08/23/17 0617 Significant Findings Laboratory Tests Test 08/23/17 06:17 Hemoglobin 12.3 GM/DL (13.0-17.0) Hematocrit 35.3 % (39.0-51.0) PE at Discharge In benefit moment. NV intact to toes. No calf tenderness. Hospital Course Patient underwent bilateral total knee arthroplasties on day of admission. He received a course of prophylactic IV antibiotics and within 23 hours started on anticoagulation therapy. He continued to improve tolerating food and fluid well and began out of bed with physical therapy tolerating by mouth pain meds. He continued to improve with daily wound care and was discharged on second postoperative day to [facility] for continuation of physical therapy. He was discharged in good condition. Pt Condition on Discharge: Good Discharge Disposition: Rehab Inpatient Discharge Instructions Diet Instructions: As Tolerated, No Restrictions Activities You Can Perform: Full Weight Bearing, Shower Only-No Bath Activities to Avoid: Bathing, Driving Flako Giraldo MD Aug 24, 2017 08:09
[2017-08-24] MEDS: DOCUSATE SODIUM 100 MG CAP PO SCH (08:39)
[2017-08-24] MEDS: APIXABAN 2.5 MG TABLET PO SCH (08:40)
[2017-08-24] MEDS: MULTIVITAMINS/MINERALS THERAPEUTIC TAB PO SCH (08:40)
[2017-08-24] MEDS: MULTIVITAMIN-OPHTHALMIC 1 TAB PO SCH (08:40)
[2017-08-24 08:41] VITALS: O2SAT 98
[2017-08-24] MEDS: CHOLECALCIFEROL (VIT D3) 1000 UNIT TAB PO SCH (08:53)
[2017-08-24 09:33] VITALS: BP 161/77; PULSE 76; O2SAT 100
[2017-08-24] MEDS: LACTATED RINGER'S 1000 ML INJ 1,000 ML IV SCH (09:50)
[2017-08-24] MEDS ORDERED: BACITRACIN OINT 0.9 GM PKT TOP PRN (10:15)
[2017-08-24 10:49] LABS: HEMATOCRIT 30.8 % (39.0-51.0)
[2017-08-24] MEDS ORDERED: BISACODYL 10 MG SUPP RECTAL ONE (11:30)
[2017-08-24 12:00] VITALS: BP 145/69; PULSE 79; RESP 17; TEMP 97.3; O2SAT 100
[2017-08-24] MEDS ORDERED: LACTULOSE SYRUP 20 GM/30 ML CUP PO SCH (12:00)
[2017-08-24] MEDS ORDERED: [UNRECOGNIZED DRUG - CODE] (13:12)
[2017-08-24] MEDS ORDERED: HYDR7.5T76 PO (13:17)
== END 2017-08-24 13:59 | DRG 462 ==
LOC: HSDI 05:32 → N06A 16:21
PROVIDERS: ADMIT Surgery; ATTEND Surgery
PROC: 0SRC0J9 Replacement of Right Knee Joint with Synthetic Substitute, Cemented, Open Approach (ICD-10-PCS; 2017-08-22)
PROC: 3E0T3BZ Introduction of Anesthetic Agent into Peripheral Nerves and Plexi, Percutaneous Approach (ICD-10-PCS; 2017-08-22)
PROC: 0SRD0J9 Replacement of Left Knee Joint with Synthetic Substitute, Cemented, Open Approach (ICD-10-PCS; principal; 2017-08-22 07:50)
DX: M17.0 Bilateral primary osteoarthritis of knee (principal); I10 Essential (primary) hypertension; K21.9 Gastro-esophageal reflux disease without esophagitis; M54.5 Low back pain; G89.29 Other chronic pain; Z86.11 Personal history of tuberculosis; Z87.891 Personal history of nicotine dependence; Z88.6 Allergy status to analgesic agent
CPT/HCPCS: 73560; 76937; 85014; 85018; 86850; 86900; 86901; 94150; C1776; C9290; J0131; J0690; J1100; J2250; J2270; J2405; J2710; J3010; J3370; J7050; J7120; L1830